=== PATIENT | female | born 1985 | race Caucasian/White ===

== ENCOUNTER → 2017-07-30 | Outpatient (CLI) | payer OTHER ==
--- NOTE | 2017-07-30 17:01 | CT ---
EXAMINATION TYPE: CT sinus wo con DATE OF EXAM: 07/30/2017 COMPARISON: NONE HISTORY: Intermittent headaches and sinus infections x1 year. CT DLP: 575 mGycm. Automated Exposure Control for Dose Reduction was Utilized. TECHNIQUE: CT scan of the sinuses is performed without contrast, axial images are obtained, coronal r eformatted images are also reviewed. FINDINGS: There is mild leftward nasal septal deviation and a 4 mm leftward nasal septal spur. Thin s eptum are seen within the maxillary sinuses. No mucosal thickening is present within the maxillary, e thmoid, sphenoid, or frontal sinuses. Mastoid air cells are well aerated. No middle ear cavity fluid. External auditory canals are patent. Osseous structures are intact. Remote well-corticated injury/fr acture of the right nasal bone is seen. The ostiomeatal complexes are patent bilaterally. No signific ant nasal turbinate mucosal hypertrophy. 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 No lef t-sided Nimisha cells or chani bullosa. Exam is not optimized for evaluation of intracranial structur es. Orbits are symmetric. Lenses are in place. No intraconal masses are seen. IMPRESSION: 1. No mucosal thickening within the paranasal sinuses. No ostiomeatal complex occlusion. 2. Nonocclusive right small Nimisha cell. No chani bullosa. 3. Mild leftward nasal septal deviation with a 4 mm nasal septal spur. 4. Remote well-corticated fracture deformity of the right nasal bone.
== END | disposition home or self-care (01) ==
LOC: RADCTMAIN 16:17
PROVIDERS: ATTEND Otolaryngology
DX: J34.2 Deviated nasal septum (principal); J34.89 Other specified disorders of nose and nasal sinuses; J32.9 Chronic sinusitis, unspecified
CPT/HCPCS: 70486

== ENCOUNTER → 2018-03-05 | Outpatient (CLI) | payer OTHER | END | disposition home or self-care (01) | LOC: LABWHC1 16:34 | PROVIDERS: ATTEND Obstetrics & Gynecology | DX: N92.5 Other specified irregular menstruation (principal) | CPT/HCPCS: 36415; 84702; 86850; 86900; 86901 ==

== ENCOUNTER → 2018-03-07 | Outpatient (CLI) | payer OTHER | END | disposition home or self-care (01) | LOC: LABWHC1 07:17 | PROVIDERS: ATTEND Obstetrics & Gynecology | DX: N92.5 Other specified irregular menstruation (principal) | CPT/HCPCS: 36415; 84702 ==

== ENCOUNTER → 2018-04-22 | Outpatient (CLI) | payer OTHER ==
[2018-04-22 17:55] LABS: Basophils % (A) 0 %; Eosinophils # (A) 0.1 k/uL (0-0.7); Eosinophils % (A) 1 %; HCT 34.5 % (34.0-46.0); HGB 11.4 gm/dL (11.4-16.0); Lymphocytes # (A) 1.6 k/uL (1.0-4.8); Lymphocytes % (A) 19 %; MCH 28.1 pg (25.0-35.0); MCHC 33.1 g/dL (31.0-37.0); Mean Platelet Volume 6.9; Monocytes # (A) 0.3 k/uL (0-1.0); Monocytes % (A) 4 %; Neutrophils # (A) 6.4 k/uL (1.3-7.7); Neutrophils % (A) 76 %; Platelet Count 256 k/uL (150-450); RBC 4.05 m/uL (3.80-5.40); RDW 13.6 % (11.5-15.5); WBC 8.4 k/uL (3.8-10.6)
[2018-04-23 04:22] LABS: Hemoglobin A1C 4.8 % (4.0-6.0)
[2018-04-23 04:48] LABS: HIV 1 AB Non-Reactive (Non-Reactive); HIV AB P24 Non-Reactive (Non-Reactive); HIV P24 AG Non-Reactive (Non-Reactive)
== END ==
LOC: LABWHC1 16:24
PROVIDERS: ATTEND Obstetrics & Gynecology
DX: Z34.81 Encounter for supervision of other normal pregnancy, first trimester (principal); Z3A.00 Weeks of gestation of pregnancy not specified
CPT/HCPCS: 36415; 82950; 83036; 85025; 86762; 86780; 87086; 87340; 87390

== ENCOUNTER 2018-11-03 09:47 | Inpatient (IN) | payer OTHER ==
[2018-10-30 11:05] VITALS: BMI 35.2
[2018-11-03] MEDS ORDERED: ceFAZolin IN SWFI 2 GM/20 ML SYRINGE IVP ONE (10:05)
[2018-11-03] MEDS ORDERED: CITRIC ACID-SODIUM CITRATE 15 ML CUP PO ONE (10:05)
[2018-11-03] MEDS ORDERED: LACTATED RINGERS 1,000 ML IV ONE (10:05)
--- NOTE | 2018-11-03 10:15 | P.HPOB ---
History of Present Illness H&P Date: 11/03/18 Chief Complaint: Previous section, requesting repeat The patient is a 33-year-old 4 para 2011 admitted at 39-0/7 weeks as established by 8 week ultrasound. She is admitted for repeat low transverse section with intraoperative bilateral tubal occlusion using Filshie clips. She does carry a diagnosis of 2 previous sections and is also as noted above requested tubal ligation and signed consent to that effect in the office. Her was otherwise complicated by gestational diabetes for which blood sugars have remained stable with diet control own. She also was found to be group B strep positive. On labor and delivery, all signs are reassuring. Obstetrical history: 4 para 2011 with 2 term deliveries and 1 early miscarriage not requiring D&C. Current statistics are listed in history present illness. EDC of 11/10/2018 was established by 8 week ultrasound. Laboratory workup demonstrates a blood type of B+ with a negative antibody screen. Rubella status is immune. The remainder of the laboratory workup was within normal limits. Early Glucola was normal. Second trimester Glucola was elevated and followed up by an abnormal three-hour glucose tolerance test making the diagnosis of gestational diabetes. Group B strep status is positive. Gynecologic history: Unremarkable with no history of any infections to include STDs. Review of Systems Review of systems is confined to history of present illness. Past Medical History Past Medical History: No Reported History, GERD/Reflux Additional Past Medical History / Comment(s): gestational diabetes diet contolled, GDM 09/03/18 (3rd with GDM) History of Any Multi-Drug Resistant Organisms: None Reported Past Surgical History: Section, Hernia Repair Additional Past Surgical History / Comment(s): left eye surgery as child, C- section x2 and planned 3rd 11/10/18 Past Anesthesia/Blood Transfusion Reactions: No Reported Reaction Smoking Status: Never smoker - Past Family History Mother Family Medical History: No Reported History Medications and Allergies Home Medications Medication Instructions Recorded Confirmed Type Pnv with Ca,No.72/Iron/FA 1 each PO DAILY 08/04/14 11/03/18 History [ Plus Multivitamin Tab] Allergies Allergy/AdvReac Type Severity Reaction Status Date / Time No Known Allergies Allergy Verified 11/03/18 10:01 Exam In general, this is a well-developed, well-nourished white female in no acute distress. Her heart has a regular rhythm and rate without murmur. Her lungs are clear to auscultation bilaterally in all perrin. Her abdomen is gravid, nondistended, has normal active bowel sounds, is soft, nontender, and without any palpable masses aside from uterine fundus. Her extremities are without any cyanosis, clubbing, or edema and are nontender to palpation bilaterally. Digital cervical examination is deferred. Assessment and Plan (1) Family planning Current Visit: Yes Status: Acute Code(s): Z30.09 - ENCOUNTER FOR OT GENERAL CNSL AND ADVICE ON CONTRACEPTION SNOMED Code(s): 578032743 (2) Previous section Current Visit: Yes Status: Acute Code(s): Z98.89 - OTHER SPECIFIED POSTPROCEDURAL STATES * DO NOT USE * SNOMED Code(s): 476769017 Plan: The patient is admitted for repeat low transverse section. She also has requested intrapartum tubal sterilization. The risks and complications of these procedures have been thoroughly discussed and she has understood and agreed to proceed.
[2018-11-03 10:34] LABS: Anisocytosis Slight; Basophils % (A) 0 %; Eosinophils # (A) 0.1 k/uL (0-0.7); Eosinophils % (A) 1 %; HCT 33.7 % (34.0-46.0); HGB 10.9 gm/dL (11.4-16.0); Hypochromasia Slight; Lymphocytes # (A) 1.5 k/uL (1.0-4.8); Lymphocytes % (A) 15 %; MCH 26.4 pg (25.0-35.0); MCHC 32.4 g/dL (31.0-37.0); MCV 81.6 fL (80.0-100.0); Mean Platelet Volume 7.9; Monocytes # (A) 0.6 k/uL (0-1.0); Monocytes % (A) 6 %; Neutrophils # (A) 7.6 k/uL (1.3-7.7); Neutrophils % (A) 76 %; Platelet Count 278 k/uL (150-450); Poikilocytosis Slight; RBC 4.13 m/uL (3.80-5.40); RDW 16.1 % (11.5-15.5)
[2018-11-03] MEDS ORDERED: ONDANSETRON 4 MG/2 ML VIAL ONE (11:15)
[2018-11-03] MEDS ORDERED: MORPHINE SULFATE (PF) 0.3 MG/0.3 ML SYR ONE (11:15)
[2018-11-03] MEDS ORDERED: OXYTOCIN 10 UNIT/ML 1 ML VIAL ONE (11:15)
[2018-11-03] MEDS ORDERED: KETOROLAC 30 MG/ML 1 ML VIAL ONE (11:15)
[2018-11-03] MEDS ORDERED: NALBUPHINE 10 MG/ML (1 ML AMP) ONE (11:15)
[2018-11-03] MEDS ORDERED: METOCLOPRAMIDE 5 MG/ML 2 ML VIAL IVP PRN (12:14)
[2018-11-03] MEDS ORDERED: diphenhydrAMINE 50 MG/ML 1 ML VIAL IVP PRN (12:14)
[2018-11-03] MEDS ORDERED: LANOLIN CREAM 5 GM TUBE TOPICAL PRN (12:14)
[2018-11-03] MEDS ORDERED: ACETAMINOPHEN TAB 325 MG TAB PO PRN (12:14)
[2018-11-03] MEDS ORDERED: ONDANSETRON 4 MG/2 ML VIAL IVP PRN (12:14)
[2018-11-03] MEDS ORDERED: diphenhydrAMINE 25 MG CAP PO PRN (12:14)
[2018-11-03] MEDS ORDERED: SIMETHICONE 80 MG CHEWABLE PO PRN (12:14)
[2018-11-03] MEDS ORDERED: diphenhydrAMINE 50 MG CAP PO PRN (12:14)
[2018-11-03] MEDS ORDERED: ZOLPIDEM 5 MG TAB PO PRN (12:14)
[2018-11-03] MEDS ORDERED: NALOXONE 0.4 MG/ML 1 ML VIAL IV PRN ×2 (12:14→14:36)
[2018-11-03] MEDS ORDERED: HYDROcodone/APAP 5-325MG 1 EACH TAB PO PRN (12:14)
[2018-11-03] MEDS ORDERED: OXYTOCIN 20 UNITS/1000 ML NS 1,000 ML IV SCH (12:15)
--- NOTE | 2018-11-03 12:22 | P.OP ---
Date of Procedure: 11/03/18 Preoperative Diagnosis: #1. 39-0/7 weeks, previous section times to #2. Gestational diabetes #3. Undesired fertility Postoperative Diagnosis: Same Procedure(s) Performed: #1. Repeat low transverse section #2. Intraoperative bilateral tubal occlusion with Filshie clips Anesthesia: spinal Surgeon: Joao Hernández Raveler #1: Tanisha Schwartz Estimated Blood Loss (ml): 400 IV fluids (ml): 400 Urine output (ml): 300 Pathology: none sent Condition: stable Disposition: PACU Operative Findings: Intraoperatively, there was noted be a mild to moderate amount of scarring at the level of the fascia and rectus muscles. Intra-abdominal he, there was minimal scarring present though the lower uterine segment was thin. The patient was delivered of a viable 8 lbs. 15 oz. baby girl with Apgars of 6 at 1 minute, 7 at 5 minutes, and 8 at 10 minutes. The uterus, tubes, and ovaries were entirely normal to inspection. A Filshie clip was placed across the entire thickness of the isthmic portion of the fallopian tube bilaterally. The placenta was delivered manually, intact, and grossly normal with a grossly normal three-vessel cord. Description of Procedure: The patient was prepped and draped in usual fashion after spinal anesthesia was administered by the anesthesiologist. A Pfannenstiel incision was made through a pre-existing scar and extended into the abdominal cavity with minimal difficulty. The bladder peritoneum was noted to be scarred somewhat near the site of incision and was therefore incised and reflected distally. A 2 cm incision was made in the transverse plane of the lower uterine segment to enter the uterus at which time clear fluid was noted. Incision was extended both directions using the bandage scissors. The head was delivered up and through the incision where the nose and mouth were thoroughly suctioned. There was a nuchal cord times to which was reduced at that time. Remainder of the infant was delivered onto the field where the cord was doubly clamped, cut, and the passed for resuscitative measures with weight and Apgars as noted above. A segment of cord was then doubly clamped, cut, and set aside should cord gases become necessary. The placenta was delivered manually and intact as noted above. The uterus was exteriorized and the interior cavity of the uterus swept of any remaining placental or membranous fragments with a laparotomy sponge. The margins of the incision were grasped with Pickett clamps and the incision closed in a single running locking stitch of 0 chromic catgut from karen in to margin. Any small points of bleeding were made hemostatic with the Bovie. After reconfirming the patient's desire for tubal ligation, a Filshie clip was placed across the isthmic portion of each fallopian tube approximately 2-3 cm from the cornu where it was fixed firmly. The posterior cul-de-sac was then suctioned using a guard. The uterus was replaced within the abdominal cavity and the gutters swept of any remaining blood, fluid, or clot. The incision was reexamined and any small points of bleeding made hemostatic with the Bovie. Once hemostasis was assured, the parietal peritoneum was loosely reapproximated and layer of muscles examined and found to be hemostatic. The fascia was closed with 2 running stitches of 0 Vicryl proceeding from the lateral margins to the midpoint. The subcutaneous tissues were irrigated and made hemostatic with the Bovie. As there was no significant depth they were not closed. The skin was reapproximated with a running subcu stitch stitch of 4-0 Vicryl followed by half-inch Steri-Strips placed with Mastisol. Estimated blood loss for the case was probably 400 mL. There are no complications. All sponge, instrument, and needle counts were correct. Both mother and are resting comfortably in recovery of the infant remains and special care nursery for ongoing respiratory difficulties.
[2018-11-03] MEDS: LACTATED RINGERS 1,000 ML IV SCH (12:35)
[2018-11-03] MEDS ORDERED: MORPHINE SULFATE 2 MG/ML SYRINGE IVP PRN (14:36)
[2018-11-03] MEDS ORDERED: NALBUPHINE 10 MG/ML (1 ML AMP) IV PRN (14:36)
[2018-11-03] MEDS ORDERED: DIPH,PERTUS(ACELL)TETVAC-LF 0.5 ML VIAL IM ONE (14:37)
[2018-11-03] MEDS: KETOROLAC 30 MG/ML 1 ML VIAL IVP PRN (18:23)
[2018-11-03] MEDS: diphenhydrAMINE 50 MG/ML 1 ML VIAL IVP PRN (20:55)
[2018-11-04] MEDS: SENNOSIDES-DOCUSATE SODIUM 1 EACH TAB PO SCH ×2 (01:08→08:08)
[2018-11-04] MEDS: LACTATED RINGERS 1,000 ML IV SCH ×7 (01:08→21:24)
[2018-11-04] MEDS: KETOROLAC 30 MG/ML 1 ML VIAL IVP PRN ×2 (04:29→12:01)
[2018-11-04 06:03] LABS: Anisocytosis Slight; Basophils % (A) 0 %; Eosinophils # (A) 0.1 k/uL (0-0.7); Eosinophils % (A) 1 %; HCT 28.8 % (34.0-46.0); Hypochromasia Slight; Lymphocytes # (A) 1.3 k/uL (1.0-4.8); Lymphocytes % (A) 15 %; MCH 26.4 pg (25.0-35.0); MCHC 32.4 g/dL (31.0-37.0); MCV 81.4 fL (80.0-100.0); Mean Platelet Volume 7.9; Monocytes # (A) 0.5 k/uL (0-1.0); Monocytes % (A) 6 %; Neutrophils # (A) 6.1 k/uL (1.3-7.7); Neutrophils % (A) 76 %; Platelet Count 225 k/uL (150-450); Poikilocytosis Slight; RBC 3.53 m/uL (3.80-5.40); WBC 8.1 k/uL (3.8-10.6)
[2018-11-04 06:05] LABS: HGB 9.3 gm/dL (11.4-16.0)
[2018-11-04] MEDS: diphenhydrAMINE 50 MG/ML 1 ML VIAL IVP PRN (08:10)
--- NOTE | 2018-11-04 08:34 | P.PNOBGPC ---
Subjective - Subjective Patient reports: Reports appetite normal, Reports voiding normally, Reports pain well controlled, Reports ambulating normally [place]: doing well, in NICU (Weaning from oxygen, otherwise well.) Objective - Vital Signs Latest vital signs: Vital Signs Temp Pulse Resp BP Pulse Ox 11/04/18 04:00 98.6 F 77 16 98/60 97 11/04/18 00:00 98.3 F 76 16 95/55 98 11/03/18 23:00 16 11/03/18 21:00 16 11/03/18 20:00 98.0 F 65 16 101/65 98 11/03/18 19:37 98 11/03/18 19:00 98 11/03/18 17:37 16 11/03/18 15:49 97.7 F 82 17 112/68 97 11/03/18 15:37 17 97 11/03/18 14:37 18 98 11/03/18 14:00 96.9 F L 69 18 108/61 11/03/18 13:30 78 18 118/78 11/03/18 13:00 97.5 F L 83 18 107/66 98 11/03/18 12:45 96.9 F L 74 18 102/61 99 11/03/18 12:30 96.9 F L 73 18 108/62 99 11/03/18 12:15 97.8 F 77 18 108/63 99 11/03/18 12:00 97.8 F 85 18 106/61 99 11/03/18 10:01 97.4 F L 94 16 120/71 99 Intake and Output 11/03/18 11/04/18 11/04/18 22:59 06:59 14:59 Output Total 550 1100 Balance -550 -1100 Output: Urine 550 1100 Uretheral ([place]) 150 Other: # Voids 1 - Exam Extremities: Present: normal Abdomen: Present: normal appearance, soft. Absent: distention, tenderness Incision: Present: normal, dry, intact Uterus: Present: normal, firm (The uterine fundus is tonic and nontender below the umbilicus.) - Labs Labs: Abnormal Lab Results - Last 24 Hours (Table) 11/03/18 11/04/18 Range/Units 10:10 05:18 RBC 3.53 L (3.80-5.40) m/uL Hgb 10.9 L 9.3 L D (11.4-16.0) gm/dL Hct 33.7 L 28.8 L (34.0-46.0) % RDW 16.1 H 16.0 H (11.5-15.5) % Assessment and Plan (1) Family planning Current Visit: Yes Status: Acute Code(s): Z30.09 - ENCOUNTER FOR OTH GENERAL CNSL AND ADVICE ON CONTRACEPTION SNOMED Code(s): 326719580 (2) Previous section Current Visit: Yes Status: Acute Code(s): Z98.89 - OTHER SPECIFIED POSTPROCEDURAL STATES * DO NOT USE * SNOMED Code(s): 094647084 (3) S/P section Current Visit: Yes Status: Acute Code(s): Z98.89 - OTHER SPECIFIED POSTPROCEDURAL STATES * DO NOT USE * SNOMED Code(s): 742140796 Plan: Continue routine postoperative care. I have encouraged the patient ambulate in the hallways at least 3 times daily. Diet has been advanced to regular and is being tolerated. Discharge will depend upon the progress of the infant in the special care nursery.
--- NOTE | 2018-11-04 15:23 | P.PN ---
Progress Note - Text Date:11/04 Time:[633am Patient is status post . Patient seen this morning with VAS score of 1.no c/o of pruritus, no c/o nausea/vomiting, comfortable and doing well.
[2018-11-05] MEDS: SENNOSIDES-DOCUSATE SODIUM 1 EACH TAB PO SCH ×2 (01:44→08:03)
[2018-11-05] MEDS: HYDROcodone/APAP 7.5-325MG 1 EACH TAB PO PRN ×2 (05:39→14:58)
[2018-11-05] MEDS: IBUPROFEN 600 MG TAB PO PRN ×2 (08:04→19:06)
--- NOTE | 2018-11-05 08:43 | P.PNOBGPC ---
Subjective - Subjective Patient reports: Reports appetite normal, Reports voiding normally, Reports pain well controlled, Reports ambulating normally : doing well, in NICU (Off of oxygen, but still on antibiotics.) Objective - Vital Signs Latest vital signs: Vital Signs Temp Pulse Resp BP Pulse Ox 11/05/18 08:00 98 F 89 16 114/63 98 11/05/18 00:00 97.6 F 85 16 104/66 100 11/04/18 16:00 98.2 F 83 18 129/71 97 11/04/18 12:00 98.3 F 92 18 102/62 99 Intake and Output 11/04/18 11/05/18 11/05/18 22:59 06:59 14:59 Output Total 1300 Balance -1300 Output: Urine 1300 Other: # Voids 1 1 1 - Exam Extremities: Present: normal Abdomen: Present: normal appearance, soft. Absent: distention, tenderness Incision: Present: normal, dry, intact Uterus: Present: normal, firm (The uterine fundus is tonic and nontender below the umbilicus.) Assessment and Plan (1) Family planning Current Visit: Yes Status: Acute Code(s): Z30.09 - ENCOUNTER FOR OT GENERAL CNSL AND ADVICE ON CONTRACEPTION SNOMED Code(s): 861657851 (2) Previous section Current Visit: Yes Status: Acute Code(s): Z98.89 - OTHER SPECIFIED POSTPROCEDURAL STATES * DO NOT USE * SNOMED Code(s): 812082108 (3) S/P section Current Visit: Yes Status: Acute Code(s): Z98.89 - OTHER SPECIFIED POSTPROCEDURAL STATES * DO NOT USE * SNOMED Code(s): 217897896 Plan: Continue routine postoperative care. The patient will remain in the hospital until the is released or insurance dictates that she must go home. She has been encouraged ambulate in the hallways routinely.
[2018-11-06] MEDS: IBUPROFEN 600 MG TAB PO PRN ×4 (00:25→19:35)
[2018-11-06] MEDS: SENNOSIDES-DOCUSATE SODIUM 1 EACH TAB PO SCH ×3 (00:48→21:53)
--- NOTE | 2018-11-06 08:38 | P.PNOBGPC ---
Subjective - Subjective Patient reports: Reports appetite normal, Reports voiding normally, Reports pain well controlled, Reports ambulating normally : doing well, in NICU (Ready for release to the room, but likely to remain in hospital for 24 hours more.), nursing well Objective - Vital Signs Latest vital signs: Vital Signs Temp Pulse Resp BP Pulse Ox 11/06/18 07:39 97.7 F 93 16 124/78 11/06/18 00:00 98 F 81 15 121/66 11/05/18 16:00 97.6 F 90 16 115/63 98 Intake and Output 11/05/18 11/06/18 11/06/18 22:59 06:59 14:59 Intake Total 500 Balance 500 Intake: Oral 500 Other: # Voids 1 - Exam Extremities: Present: normal Abdomen: Present: normal appearance, soft. Absent: distention, tenderness Incision: Present: normal, dry, intact Uterus: Present: normal, firm (The fundus is tonic and nontender below the umbilicus.) Assessment and Plan (1) Family planning Current Visit: Yes Status: Acute Code(s): Z30.09 - ENCOUNTER FOR OT GENERAL CNSL AND ADVICE ON CONTRACEPTION SNOMED Code(s): 643765015 (2) Previous section Current Visit: Yes Status: Acute Code(s): Z98.89 - OTHER SPECIFIED POSTPROCEDURAL STATES * DO NOT USE * SNOMED Code(s): 388164799 (3) S/P section Current Visit: Yes Status: Acute Code(s): Z98.89 - OTHER SPECIFIED POST PROCEDURAL STATES * DO NOT USE * SNOMED Code(s): 992456560 Plan: Continue routine care until infant released. If the infant is discharge today, patient will be discharged today, otherwise discharge will occur tomorrow.
[2018-11-07] MEDS: IBUPROFEN 600 MG TAB PO PRN (04:06)
[2018-11-07 09:47] VITALS: BP 114/72; PULSE 82; RESP 16; TEMP 98.2
--- NOTE | 2018-11-07 10:58 | P.DS ---
Providers Date of admission: 11/03/18 09:47 Expected date of discharge: 11/07/18 Attending physician: Joao Hernández Primary care physician: Stated None - Discharge Diagnosis(es) (1) Family planning Current Visit: Yes Status: Acute (2) Previous section Current Visit: Yes Status: Acute (3) S/P section Current Visit: Yes Status: Acute Hospital Course: The patient is a 33-year-old 4 para 2011 admitted at 39-0/7 weeks by good dating parameters. She is admitted for repeat low transverse section with bilateral tubal occlusion intraoperatively. Her was uncomplicated though she was found gestational diabetes for which she had very good blood sugar control with diet alone. She additionally was known to be group B strep positive. On labor and delivery, she was taken the operating room where she was delivered of a viable 8 lbs. 15 oz. baby girl with Apgars of 6 at 1 minute, 7 at 5 minutes, and 8 at 10 minutes. The infant remained in the special care nursery for 3 days for ongoing issues with breathing but was released to the room on the afternoon or evening of postoperative day #3. She and her baby were deemed stable for discharge on post operative day #4 were d ischarged home to follow-up in the office in 2 weeks for an incision check and 6 weeks routinely. Discharge instructions included calling for any significantly increased bleeding or foul-smelling lochia, significantly increased fever or abdominal pain, perineal complaints, breast complaints, incisional complaints, or anything else that concerned her. She was additionally instructed to have nothing in the vagina for at least 6 weeks time to include intercourse. She was instructed to do no heavy lifting over the same period of time. She was last instructed to do no driving until off of all pain medications or 2 weeks' time, whichever came first. She understood all of her instructions and agrees to follow up as noted above. Discharge medications included continued vitamins as she has opted to breast-feed. She was additionally provided a prescription for [place] 5/325 mg, 1-2 by mouth every 6 hours when necessary pain, #15 dispensed with no refills. Maternal blood type is B+ and rubella status is immune. Maternal discharge hemoglobin and hematocrit were 9.3 and 28.8 respectively. As result, she was to use iron sulfate daily over the next month to rebuild her hemoglobin. Procedures: #1. Repeat low transverse section #2. Intraoperative bilateral tubal occlusion with Filshie clips Patient Condition at Discharge: Good Plan - Discharge Summary New Discharge Prescriptions: No Action Pnv with Ca,No.72/Iron/FA [ Plus Multivitamin Tab] 1 each PO DAILY Discharge Medication List Pnv with Ca,No.72/Iron/FA [ Plus Multivitamin Tab] 1 each PO DAILY 08/04/14 [History] Follow up Appointment(s)/Referral(s): Joao Hernández MD [STAFF PHYSICIAN] - 2 Weeks Discharge Disposition: HOME SELF-CARE
== END 2018-11-07 11:45 | disposition home or self-care (01) | DRG 785 ==
LOC: 4FBP 09:47
PROVIDERS: ADMIT Obstetrics & Gynecology; ATTEND Obstetrics & Gynecology
PROC: 0UL70CZ Occlusion of Bilateral Fallopian Tubes with Extraluminal Device, Open Approach (ICD-10-PCS; 2018-11-03)
PROC: 10D00Z1 Extraction of Products of Conception, Low, Open Approach (ICD-10-PCS; principal; 2018-11-03 12:00)
DX: O34.211 Maternal care for low transverse scar from previous cesarean delivery (principal); O24.420 Gestational diabetes mellitus in childbirth, diet controlled; Z3A.39 39 weeks gestation of pregnancy; Z37.0 Single live birth; O99.824 Streptococcus B carrier state complicating childbirth; Z30.2 Encounter for sterilization
CPT/HCPCS: 85025; 86850; 86900; 86901; 90715

== ENCOUNTER → 2023-12-25 | Outpatient (CLI) | payer BC ==
--- NOTE | 2023-12-25 21:05 | US ---
EXAMINATION TYPE: US transvaginal DATE OF EXAM: 12/25/2023 COMPARISON: NONE CLINICAL INDICATION: Female, 38 years old with history of N94.6 DYSMENORRHEA; Abnormal periods. TECHNIQUE: Transvaginal (TV). Date of LMP: 11/27/2023, EXAM MEASUREMENTS: Uterus: 9.0 x 5.2 x 4.6 cm Endometrial Stripe: 1.2 cm Right Ovary: 2.3 x 1.5 x 1.2 cm Left Ovary: 2.8 x 2.0 x 1.9 cm 1. Uterus: Anteverted wnl, area seen 2. Endometrium: wnl for menstrual phase 3. Right Ovary: wnl 4. Left Ovary: complex lesion with peripheral vascular flow = 1.6 x 1.7 x 1.4 cm 5. Bilateral Adnexa: wnl 6. Posterior cul-de-sac: free fluid Unremarkable anteverted uterus with scar demonstrated. Endometrium is within normal limits for menstrual phase. Right ovary is unremarkable. Complex cyst with posterior acoustic enhancement in the left ovary measuring up to 1.7 cm. Somewhat crenulated appearance of the margins. Peripheral vas cular flow identified. IMPRESSION: Complex left ovarian cystic lesion. This may represent a benign corpus luteal cyst versus other etiol ogies. Recommend follow-up ultrasound in 6 to 12 weeks.
== END | disposition home or self-care (01) ==
LOC: RADUSWWP 11:11
PROVIDERS: ATTEND Family Medicine
DX: N94.6 Dysmenorrhea, unspecified (principal); N83.202 Unspecified ovarian cyst, left side
CPT/HCPCS: 76830